=== PATIENT | male | born 1980 | race African-American/Black ===

== ENCOUNTER 2019-05-24 06:45 | Emergency (ER) | payer OTHER ==
[~2019-05-24] VITALS: Ht 180.3 cm; Wt 86.2 kg
[2019-05-24] MEDS ORDERED: PRILOSEC OTC20 MG PO (06:54)
[2019-05-24 07:24] LABS: ABSOLUTE BASOPHILS 0.1 thou/uL (0.0-0.2); ABSOLUTE EOSINOPHILS 0.2 thou/uL (0.0-0.7); ABSOLUTE LYMPHOCYTES 2.6 thou/uL (0.8-5.3); ABSOLUTE MONOCYTES 0.8 thou/uL (0.0-1.2); ABSOLUTE NEUTROPHILS 3.7 thou/uL (1.6-8.1); BASOPHILS 1.1 %; EOSINOPHILS 2.6 %; HEMOGLOBIN 14.7 gm/dL (14.0-18.0); LYMPHOCYTES 35.3 %; MCH 33.4 pg (26.0-34.0); MCHC 34.1 g/dL (28.0-37.0); MCV 98.1 fL (80.0-100.0); MONOCYTES 10.6 %; MPV 8.3 fl. (7.2-11.1); NUCLEATED RBCS 0 /100WBC; PLATELET COUNT* 194 thou/uL (150-400); POLYS 50.4 %; RBC 4.39 mil/uL (4.50-6.00); RDW-CV 13.7 % (10.5-14.5); WBC 7.3 thou/uL (4.0-11.0)
[2019-05-24 07:33] LABS: ANION GAP 10 mmol/L (7-16); BUN 13 mg/dL (7-18); CALCIUM 8.8 mg/dL (8.5-10.1); CHLORIDE 106 mmol/L (98-107); CO2 26 mmol/L (21-32); GLUCOSE 96 mg/dL (70-99); SODIUM 142 mmol/L (136-145)
[2019-05-24 07:34] LABS: APTT 26.4 Seconds (25.0-31.3)
[2019-05-24 07:46] LABS: ALBUMIN 3.6 g/dL (3.4-5.0); ALKALINE PHOSPHATASE 74 U/L (46-116); CK-MB MASS 0.6 ng/mL (<0.5-3.6); LIPASE 65 U/L (73-393); MAGNESIUM 1.9 mg/dL (1.8-2.4); NT-PRO BRAIN NAT PEPTIDE < 5 pg/mL (<300); SGOT 29 U/L (15-37); SGPT 45 U/L (30-65); TOTAL BILIRUBIN 0.3 mg/dL (<0.1-1.0); TOTAL PROTEIN 6.8 g/dL (6.4-8.2)
[2019-05-24] MEDS ORDERED: TORADOL 10 MG T10 MG PO (09:00)
[2019-05-24] MEDS ORDERED: MEDROLDOSEPACK PO (09:00)
[2019-05-24 09:52] VITALS: BP 128/72
--- NOTE | 2019-05-24 15:03 | EKG ---
[place] [address] ELECTROCARDIOGRAM REPORT Name: MICHELLE GONZALEZ Room: [facility]#: [id number] Admission: 05/24/19 Attend Phys: Discharge: 05/24/19 Date of : 82 Report #: [id number] THIS REPORT FOR: //name// [facility] ED Test Date: 2019-05-24 Test Time: 06:49:09 Pat Name: MICHELLE GONZALEZ Department: Room: Gender: M Qa Manager: RAINE : 1980 Requested By: Sharad Pride Order Number: [id number] MD: Titi Fair Measurements Intervals [place] Rate: 82 P: 84 MS: 121 QRS: 75 QRSD: 84 T: 64 QT: 354 QTc: 414 Interpretive Statements Sinus rhythm ST elev, probable normal early repol pattern No previous ECG available for comparison Electronically Signed On 05-24-2019 15:02:56 NURSE by Titi Fair [email or web address] <ELECTRONICALLY SIGNED> By: Titi Fair MD, [facility] 05/24/19 1502 [id number] Titi Fair MD, FACC /EPI
== END 2019-05-24 09:53 | disposition home or self-care (01) ==
LOC: M.ERS 06:45
PROVIDERS: Family Medicine
DX: M94.0 Chondrocostal junction syndrome [Tietze] (principal)